=== PATIENT | male | born 1995 | race Caucasian/White ===

== ENCOUNTER 2016-08-20 09:48 | Emergency (ER) | payer OTHER ==
[~2016-08-20] VITALS: Ht 190.5 cm; Wt 90.9 kg
[2016-08-20 11:04] LABS: ADD MIUA? NO; BILIRUBIN NEGATIVE; BLOOD NEGATIVE; COLOR YELLOW ((YELLOW)); GLUCOSE (STRIP) NEGATIVE; KETONES NEGATIVE; LEUKOCYTES NEGATIVE; NITRITE NEGATIVE; PROTEIN (STRIP) 30; SPECIFIC GRAVITY 1.025 (1.000-1.030); UCUL ADDED? NO; UROBILINOGEN 0.2 MG/DL (0.2-1.0)
[2016-08-20 11:13] LABS: HEMATOCRIT 43.4 % (38.0-50.0); MCHC 33.4 G/DL (30.0-36.0); MCV 86.8 FL (86-99); MEAN PLAT.VOLUME 10.6 uM^3 (9.0-12.4); PLATELET COUNT 129 K/uL (156-360); RBC DIS.WIDTH-SD 38.4 % (39-53); WHITE BLOOD COUNT 3.6 K/uL (4.1-10.2)
[2016-08-20 11:23] LABS: CHLORIDE 106 mEq/L (99-109); POTASSIUM 4.2 mEq/L (3.7-5.4); SODIUM 141 mEq/L (136-147)
[2016-08-20 11:26] LABS: GLUCOSE 103 mg/dL (70-99)
[2016-08-20 11:27] LABS: ANION GAP 7 MEQ/L (2-14)
[2016-08-20 11:28] LABS: TOTAL BILIRUBIN 0.7 mg/dL (0.0-1.0)
[2016-08-20 11:29] LABS: ALKALINE PHOSPHATASE 73 IU/L (3-129); GFR ESTIMATE (CALCULATED) > 59 mL/min/
[2016-08-20 11:30] LABS: UREA NITROGEN (BUN) 15 mg/dL (9-23)
[2016-08-20 11:32] LABS: CREATINE KINASE 97 IU/L (1-294)
[2016-08-20] MEDS ORDERED: ANTIVERT25 MG PO (12:46)
[2016-08-20 12:57] VITALS: BP 137/68
[2016-08-20 14:35] LABS: LYME DISEASE SEROLOGY SCREEN NEGATIVE (NEGATIVE)
== END 2016-08-20 12:57 | disposition home or self-care (01) ==
LOC: EME 09:48
PROVIDERS: Physician Assistant
DX: E86.0 Dehydration (principal); R42 Dizziness and giddiness; R00.1 Bradycardia, unspecified
CPT/HCPCS: 80053; 81003; 82550; 85027; 86618; 93005; 99281; 99284; J2405; J7030